=== PATIENT | male | born 1975 | race African-American/Black ===

== ENCOUNTER 2025-06-09 17:25 | Emergency (ER) | payer MEDICAID, SELFPAY ==
[2025-06-09 18:05] VITALS: BP 158/104; PULSE 87; RESP 18; TEMP 36.8; O2SAT 99; BMI 29.1
--- NOTE | 2025-06-09 18:32 | PD.EDRME ---
Rapid Medical Screening Exam [facility] Arrival date/time: 06/09/25 17:25 49M with no significant PMH presents to ED with 1 week of penile discharge and dysuria after the condom fell off. Patient denies rash. Chief Complaint: General Adult/Misc Complain Vital signs: Vital Signs Temperature 98.2 F 06/09/25 18:05 Pulse Rate 87 06/09/25 18:05 Respiratory Rate 18 06/09/25 18:05 Blood Pressure 158/104 H 06/09/25 18:05 Pulse Oximetry (%) 99 06/09/25 18:05 Oxygen Delivery Method Room Air 06/09/25 18:05 Exam: Unremarkable. Clinical Impression: concern for STD vs yeast infection vs dysuria vs STD vs syphillis
[2025-06-09 18:59] LABS: Collection Type, Urine Clean Catch; Squamous Epithelial Cell,Urine 0 /hpf (0-5)
[2025-06-09 19:16] LABS: Bilirubin,Urine Negative (Negative); Blood,Urine 1+ (Negative); Clarity,Urine Turbid (Clear/Hazy); Color,Urine Yellow (Lt Yel-Yel); Glucose, Urine Negative (Negative); Ketones,Urine Trace (Negative); Leukocyte Esterase,Urine Positive (Negative); Nitrite,Urine Negative (Negative); PH,Urine 6.0 (5.0-7.0); Protein,Urine 1+ (Neg - Trace); RBC,Urine 24 /hpf (0-3); Specific Gravity,Urine 1.034 (1.001-1.035); Urobilinogen,Urine 4.0 mg/dL (0.0-1.0); WBC,Urine 992 /hpf (0-5)
[2025-06-09 19:18] LABS: Culture Indicated,Urine Yes
--- NOTE | 2025-06-09 20:11 | EDNOTE_ITS ---
ED General RME/HPI General Chief complaint: General Adult/Misc Complain Stated complaint: TESTING FOR STD, BURNING W/ URINATION 01/31 Arrival date/time: 06/09/25 17:25 Limitations: no limitations RME / HPI RME / HPI narrative: 06/09/25 17:25 49M with no significant PMH presents to ED with 1 week of penile discharge and dysuria after the condom fell off. Patient denies rash. Exam: Unremarkable. Impression: concern for STD vs yeast infection vs dysuria vs STD vs syphillis Related Data Previous Rx's ?Medication ?Instructions ?Recorded amoxicillin 875 mg-potassium 1 tab PO BID #20 tabs clavulanate 125 mg tablet (Augmentin) fluticasone propionate 50 2 spray intranasal QDAY #16 grams 01/06/18 mcg/actuation nasal spray,suspension (Flonase Allergy Relief) doxycycline monohydrate 100 mg 100 mg PO BID #14 caps 06/09/25 capsule Allergies Allergy/AdvReac Type Severity Reaction Status Date / Time lactose AdvReac Severe EXPLOSIVE Verified 06/09/25 17:29 DIARRHEA,ABD CRAMPING. ED Exam General Limitations: Present no limitations General appearance: Present alert and in no apparent distress Head Head exam: Present atraumatic and normocephalic Eye Eye exam: Present normal appearance, PERRL and EOMI ENT ENT exam: Present normal exam and normal oropharynx Neck Neck exam: Present normal inspection and full ROM Chest Chest inspection: Present normal inspection and symmetric chest wall rise Respiratory Respiratory exam: Present normal lung sounds bilaterally; Absent respiratory distress Cardiovascular Cardiovascular exam: Present regular rate and normal rhythm Abdominal Exam Abdominal exam: Present soft; Absent distention or tenderness exam: Present normal inspection and normal testicular lie; Absent testicular tenderness, urethral discharge or scrotal swelling Extremities Exam Extremities exam: Present normal inspection Neurological Exam Neurological exam: Present alert, oriented X3 and CN II-XII intact Psychiatric Psychiatric exam: Present normal affect Course Quality Measures none Orders Category Date Time Status Chlamydia/GC/TV - PCR Stat Lab 06/09/25 18:45 Received HIV (1&2) Antibody Rapid Stat Lab 06/09/25 19:07 Completed Syphilis Stat Lab 06/09/25 19:07 Received Urinalysis, C/S if Indicated Stat Lab 06/09/25 18:45 Completed Urine Culture Stat Lab 06/09/25 18:45 Received Doxycycline [Vibramycin] Med 06/09/25 20:17 Discontinued 100 mg PO X1 ONE cefTRIAXone [Rocephin] 1,000 mg Med 06/09/25 20:18 Discontinued Lidocaine 1% Pf Vial 5ml [Xylocaine 1% Pf 5 ml] 2.1 ml IM X1 Vital Signs Vital signs: Vital Signs Temperature 98.2 F 06/09/25 18:05 Pulse Rate 87 06/09/25 18:05 Respiratory Rate 18 06/09/25 18:05 Blood Pressure 158/104 H 06/09/25 18:05 Pulse Oximetry (%) 99 06/09/25 18:05 Oxygen Delivery Method Room Air 06/09/25 18:05 Discharge Plan Plan Patient Disposition: HOME (Self Care) Prescriptions/Referrals Prescriptions/Med Rec: New doxycycline monohydrate 100 mg capsule 100 mg PO BID Qty: 14 0RF No Action fluticasone propionate [Flonase Allergy Relief] 50 mcg/actuation spray,s uspension 2 spray INTRANASAL QDAY Qty: 16 0RF Rx Instructions: administer into each nostril amoxicillin-pot clavulanate [Augmentin] 875-125 mg tablet 1 tab PO BID Qty: 20 0RF Referrals: No Primary/Family,Physician [Primary Care Provider] - In 1 week Problem List Clinical Impression: Urinary tract infection, Discharge from penis Patient/Caregiver Discharge Instructions Education Materials: Urinary Tract Infections in Men Additional Instructions: Urine appears infected, we are providing you with antibiotics. Given your concerns expressed today, we are treating you with antibiotics for possible sexually-transmitted infections. Please complete the course of antibiotics. Please follow-up with the patient portal with the results of your testing that will not result today. Please follow-up with your primary care doctor within the next 1 to 2 days. Print Language: Japanese Stand Alone Forms: [employer] Info., Patient Portal Info Letter MDM Narrative MDM hospital course (for use when minimal MDM required): 49M with no significant PMH presents to ED with 1 week of penile discharge and dysuria after the condom fell off. Patient denies rash. Vital signs and exam as listed. Prior provider evaluated patient. Ordered urinalysis, and STD testing. Concern for urinary tract infection, sexually-transmitted infection. Patient nonseptic nontoxic. Urinalysis is turbid, leuk esterase positive, 24 BCs, 992 WBCs, no squames no bacteria. Will treat for urinary tract infection. Patient expressed that he is monogamous with 1 partner, has had chlamydia in the past. He is concerned that the discharge from his penis is copious and worse than he ever has had before. On my exam which was performed with a ED cooking appliance repair technician as a electric clock mechanic, patient does not have any lesions in the perineum, the skin is intact, no lymphadenopathy, no discharge appreciated from the penis, no lesions. Had joint decision made conversation with the patient, given symptoms are most consistent with urinary tract infection versus sexually transmitted infection will treat both. Patient does not have any allergies to medications. Advised patient on safe sexual practice, advised to follow-up with his primary care doctor as well as to sign up for the patient portal to follow-up with the results of his chest that will not result today. Patient discharged hemodynamically stable not distressed Medical Records reviewed [facility] Medication Administration(s) Medication Administration History Discontinued Medications Ceftriaxone Sodium 1,000 mg/ (Lidocaine HCl 2.1 ml) 0 mg IM X1 ONE Stop: 06/09/25 20:19 Doxycycline Hyclate (Doxycycline 100 Mg Tablet) 100 mg PO X1 ONE Stop: 06/09/25 20:18 See above Diagnosis Differential Diagnosis ED Complaint MDM: See MDM
[2025-06-09 20:23] LABS: HIV (1&2) Antibody Rapid Non-Reactive
[2025-06-09 23:56] LABS: Syphilis Nonreactive (Nonreactive)
[2025-06-10 09:04] LABS: Chlamydia trachomatis PCR Negative (Not Detect); Neisseria Gonorrhoeae DNA PCR Positive (Not Detect); Trichomonas Negative (Negative)
== END 2025-06-09 21:42 | disposition home or self-care (01) ==
PROVIDERS: Physician Assistant; Emergency Provider Emergency Medicine
DX: N39.0 Urinary tract infection, site not specified (principal); R36.9 Urethral discharge, unspecified
CPT/HCPCS: 36415; 81001; 86703; 86780; 87086; 87491; 87591; 87661; 96372; 99282; J0696; J3490